=== PATIENT | female | born 1950 | race Caucasian/White ===

== ENCOUNTER 2021-09-29 11:52 | Outpatient (CLI) | payer MEDICARE, OTHER ==
[2021-09-29 12:28] LABS: BASOPHILS # (AUTO) 0.1 10^3/uL (0.0-0.1); BASOPHILS % (AUTO) 1.3 %; EOSINOPHILS # (AUTO) 0.1 10^3/uL (0.0-0.7); EOSINOPHILS % (AUTO) 2.3 %; HCT - HEMATOCRIT 41.5 % (37.0-47.0); LYMPHOCYTES # (AUTO) 1.4 10^3/uL (1.5-3.5); LYMPHOCYTES % (AUTO) 26.9 %; MEAN CORPUSCULAR HEMOGLOBIN 30.9 pg (27.0-31.0); MEAN CORPUSCULAR HGB CONC 33.7 g/dL (32.0-36.0); MEAN CORPUSCULAR VOLUME 91.6 fL (81.0-99.0); MEAN PLATELET VOLUME 11.3 fL (7.9-10.8); MONOCYTES # (AUTO) 0.4 10^3/uL (0.0-1.0); MONOCYTES % (AUTO) 6.7 %; NEUTROPHILS # (AUTO) 3.3 10^3/uL (1.5-6.6); NEUTROPHILS % (AUTO) 62.6 %; PLT - PLATELET COUNT 255 10^3/uL (130-450); RED BLOOD COUNT 4.53 10^6/uL (4.20-5.40); RED CELL DISTRIBUTION WIDTH 12.9 % (12.0-15.0); WHITE BLOOD COUNT 5.2 x10^3/uL (4.8-10.8)
[2021-09-29 12:48] LABS: ALBUMIN 4.5 g/dL (3.2-5.5); ALBUMIN/GLOBULIN RATIO 1.5 (1.0-2.2); BILIRUBIN,TOTAL 0.6 mg/dL (0.2-1.0); CALCIUM 9.7 mg/dL (8.5-10.3); CREATININE 0.9 mg/dL (0.4-1.0); POTASSIUM 3.7 mmol/L (3.5-5.0); TOTAL PROTEIN 7.6 g/dL (6.7-8.2)
[2021-09-29 12:56] LABS: T4 (THYROXINE) 6.63 ug/dL (6.09-12.23)
[2021-09-29 13:00] LABS: THYROID STIMULATING HORMONE 2.21 uIU/mL (0.34-5.60)
[2021-09-29 13:02] LABS: FREE T4 (FREE THYROXINE) 0.76 ng/dL (0.58-1.64)
[2021-10-04 22:57] LABS: ANA SCREEN POSITIVE (NEGATIVE)
== END 2021-09-29 11:53 | disposition home or self-care (01) ==
LOC: LAB 11:52
PROVIDERS: ATTEND Nurse Practitioner
DX: L65.9 Nonscarring hair loss, unspecified (principal); L60.9 Nail disorder, unspecified
CPT/HCPCS: 36415; 80053; 82306; 83540; 84436; 84439; 84443; 84466; 84630; 85025; 86038; 86140